=== PATIENT | female | born 1960 | race Hispanic/Latino ===

== ENCOUNTER → 2019-06-06 | Day surgery (SDC) | payer OTHER ==
[~2019-06-06] MED LIST: ARMOUR THYROID60 MG PO; CITALOPRAM HBR20 MG PO; GLUCAGON FOR INJ 1 MG VIAL ONE; HYOSCYAMINE 0.125 MG TAB ONE; IRBESARTAN150 MG PO; LIDOCAINE HCL 2% LOCAL INJ 5 ML SDV VIAL INJ ONE; MIDAZOLAM HCL 2 MG/2 ML VIAL ONE; NAPROXEN500 MG PO; NITROFURANTOIN100 MG PO; OMEPRAZOLE40 MG PO
[2019-06-06 14:25] VITALS: BP 130/89
[2019-06-06 17:20] LABS: WBC,FECAL (FECAL LACTOFERRIN) NEGATIVE (NEGATIVE)
--- NOTE | 2019-06-06 20:18 | Operative Report ---
DATE OF PROCEDURE: 06/06/2019 SURGEON: Earnest Yusuf MD PROCEDURE: Colonoscopy with polypectomy and biopsies. INDICATIONS FOR COLONOSCOPY: Surveillance colonoscopy, personal history of colon polyps, lower abdominal pain, intermittent loose stools. MEDICATIONS: The patient was done under MAC. Please see anesthesiologist's note. PROCEDURE IN DETAIL: With the patient in left lateral decubitus position, a flexible fiberoptic Olympus colonoscope was inserted into the rectum with ease and advanced all the way to the cecum. Mucosa overlying the cecum appeared to be within normal limits. The ileocecal valve was intubated and the scope was advanced into the terminal ileum. Biopsies were obtained. The scope was then withdrawn back into the colon. It was then withdrawn slowly and mucosa overlying the ascending colon, transverse colon grossly appeared to be within normal limits. Mild patchy inflammatory changes were noted in the left colon and random biopsies were obtained. Two polyps were hot-snared from the descending colon. One polyp was hot-snared from the sigmoid colon. The mucosa overlying the rectum also revealed some patchy mild inflammatory changes and biopsies were obtained. The scope was then retroflexed into the distal rectum and small internal hemorrhoids were noted none of which was actively bleeding. The scope was then straightened out, it was subsequently withdrawn after securing an adequate stool specimen that was sent for the appropriate stool studies. The patient tolerated procedure well. Of note, the colon was excessively spastic and irritable particularly the left colon was suboptimally visualized. IMPRESSION: 1. Descending colon polyps x2, hot-snared. 2. Mild patchy left-sided colitis. 3. Diverticulosis. 4. Sigmoid colon polyp, hot-snared x1. 5. Proctitis, mild. 6. Internal hemorrhoids, none actively bleeding. PLAN: Follow up histology. Follow up stool studies. Initiate Bentyl 10 mg one p.o. t.i.d. VSL #3 one p.o. daily. The patient might benefit from a followup colonoscopy in 3 years. Earnest Yusuf MD [facility] /[id number] cc: Kaleb Bautista MD
[2019-06-07 15:15] LABS: C DIFFICILE TOXIN A&B AMP PROB NEGATIVE (NEGATIVE)
--- OUTSIDE RECORDS SUMMARY | 2019-06-15 10:53 | XMS REPORT ---
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 Allergies, Adverse Reactions, Alerts Allergy Name Allergy Type Status Severity Reaction(s) Onset Date Inactive Date Treating Clinician Comments bethany Gloria [place] 2016-09-03 00:00:00 Medications This patient has no known medications.
== END | disposition home or self-care (01) ==
LOC: OR 10:13
PROVIDERS: ATTEND Internal Medicine Gastroenterology
DX: K20.8 Other esophagitis (principal); D12.4 Benign neoplasm of descending colon; D12.5 Benign neoplasm of sigmoid colon; Z86.010 Personal history of colon polyps; R12 Heartburn; I10 Essential (primary) hypertension; Z68.25 Body mass index [BMI] 25.0-25.9, adult; K63.5 Polyp of colon; K51.50 Left sided colitis without complications; K57.30 Diverticulosis of large intestine without perforation or abscess without bleeding; K62.89 Other specified diseases of anus and rectum; K64.8 Other hemorrhoids; Z01.810 Encounter for preprocedural cardiovascular examination; Z88.5 Allergy status to narcotic agent; Z88.8 Allergy status to other drugs, medicaments and biological substances
CPT/HCPCS: 45385; 83630; 83993; 87045; 87177; 87328; 87493; 93005; J1610; J2001; J2250; 45378; 45380; 45384

== ENCOUNTER → 2020-02-08 | Outpatient (CLI) | payer OTHER ==
[~2020-02-08] MED LIST changes: -GLUCAGON FOR INJ 1 MG VIAL ONE; -HYOSCYAMINE 0.125 MG TAB ONE; -LIDOCAINE HCL 2% LOCAL INJ 5 ML SDV VIAL INJ ONE; -MIDAZOLAM HCL 2 MG/2 ML VIAL ONE
== END ==
LOC: MAMMO 08:55
PROVIDERS: ATTEND Internal Medicine
DX: Z12.31 Encounter for screening mammogram for malignant neoplasm of breast (principal)
CPT/HCPCS: 77067